=== PATIENT | male | born 1935 | race Two or more races ===

== ENCOUNTER 2017-12-30 10:06 | Outpatient (CLI) | payer OTHER ==
[~2017-12-30] VITALS: Ht 152.4 cm; Wt 72.6 kg
[2017-12-30] MEDS ORDERED: CEFUROXIME500 MG PO (12:47)
[2017-12-30] MEDS ORDERED: ZANTAC300 MG PO (12:47)
[2017-12-30] MEDS ORDERED: FLONASE16 GM NASAL (12:47)
== END 2017-12-30 10:20 | disposition home or self-care (01) ==
LOC: OFIC 805 10:06
DX: J33.8 Other polyp of sinus (principal); R05 Cough; J37.0 Chronic laryngitis; J32.8 Other chronic sinusitis

== ENCOUNTER 2018-02-03 09:45 | Outpatient (CLI) | payer OTHER ==
[~2018-02-03] VITALS: Ht 152.4 cm; Wt 72.6 kg
[~2018-02-03 09:45] MED LIST: CEFUROXIME500 MG PO; FLONASE16 GM NASAL; ZANTAC300 MG PO
== END 2018-02-03 10:00 | disposition home or self-care (01) ==
LOC: OFIC 805 09:45
DX: J32.8 Other chronic sinusitis (principal); R09.82 Postnasal drip

== ENCOUNTER 2019-08-02 11:55 | Outpatient (CLI) | payer OTHER ==
[~2019-08-02] VITALS: Ht 152.4 cm; Wt 72.6 kg
[2019-08-02] MEDS ORDERED: IPRATROPIUM BRO15 ML NASAL ×2 (13:43)
== END 2019-08-02 13:48 | disposition home or self-care (01) ==
LOC: OFIC 805 11:55
DX: J32.8 Other chronic sinusitis (principal); J33.8 Other polyp of sinus; R05 Cough; J37.0 Chronic laryngitis; R09.82 Postnasal drip; J34.2 Deviated nasal septum

== ENCOUNTER 2019-08-02 14:25 | Outpatient (CLI) | payer OTHER ==
[~2019-08-02 14:25] MED LIST changes: +IPRATROPIUM BRO15 ML NASAL
== END 2019-08-02 14:30 | disposition home or self-care (01) ==
LOC: TOM 14:25
DX: J32.8 Other chronic sinusitis (principal); J34.2 Deviated nasal septum

== ENCOUNTER 2019-09-21 10:53 | Outpatient (CLI) | payer OTHER ==
[~2019-09-21] VITALS: Ht 152.4 cm; Wt 72.6 kg
== END 2019-09-21 11:10 | disposition home or self-care (01) ==
LOC: OFIC 805 10:53
DX: J32.8 Other chronic sinusitis (principal); J33.8 Other polyp of sinus; R05 Cough; J37.0 Chronic laryngitis; R09.82 Postnasal drip; J34.2 Deviated nasal septum

== ENCOUNTER 2020-01-22 18:40 | Emergency (ER) | payer OTHER ==
[~2020-01-22] VITALS: Ht 170.2 cm; Wt 77.1 kg
[2020-01-22] MEDS ORDERED: METFORMIN HCL500 M3 (18:46)
[2020-01-22] MEDS ORDERED: CANDESARTAN CILE8 MG (18:46)
[2020-01-22] MEDS ORDERED: OSEL75CA PO (22:40)
[2020-01-22] MEDS ORDERED: ZITHROMAX200 MG PO (22:41)
[2020-01-22] MEDS ORDERED: MUCINEX DM ER1 EAC1 PO (22:42)
== END 2020-01-22 23:09 | disposition home or self-care (01) ==
LOC: ER 18:40
DX: J09.X2 Influenza due to identified novel influenza A virus with other respiratory manifestations (principal); R42 Dizziness and giddiness; R05 Cough